=== PATIENT | male | born 1995 | race African-American/Black ===

== ENCOUNTER 2024-08-26 15:37 | Emergency (ER) | payer BC, SELFPAY ==
--- NOTE | ~2024-08-26 | XR_ITS ---
XR chest 2V DATE: 08/26/2024 16:10 INDICATION: Chest pain, shortness of breath TECHNIQUE: Chest pain, shortness of breath COMPARISON: None FINDINGS: Normal heart size. No hilar or mediastinal enlargement. No pulmonary infiltrate or consolid ation, pleural effusion or pulmonary vascular congestion or pneumothorax is detected. Included skeletal structures are unremarkable. IMPRESSION: No active cardiopulmonary disease Reviewed, dictated and finalized at location [facility]. [facility] [employer]
--- NOTE | 2024-08-26 15:40 | ED.CHESTPAIN ---
HPI - Chest Pain General Chief Complaint: Shortness of Breath/Dyspnea Stated Complaint: chest pain / SOB Time Seen by Provider: 08/26/24 15:40 Source: patient Mode of arrival: ambulatory Limitations: no limitations History of Present Illness HPI narrative: Asa is a 28-year-old male patient presenting to the clinic today with complaints of intermittent chest pain and shortness of breath x2 weeks. He works as a over the road dedicated truck driver. He is from [place]. States the last time he was have having bad chest pain was on Tuesday. He states he Googled his symptoms and thought he should come in today to be evaluated. States he felt short of breath with exertion and is having some chest tightness when trying to take a deep breath. Does have a nonproductive occasional cough. He denies any chest pain at this time but still states he has a little tightness in the anterior chest when he tries to take a deep breath. Rates pain 0/10 currently. Pain is nonradiating. He denies any history of hypertension, hyperlipidemia, diabetes, clotting disorder, or lung disease. He is hypertensive in the clinic today. Related Data Home Medications Medication Instructions Recorded Confirmed No Home Medications 08/26/24 08/26/24 Allergies Allergy/AdvReac Type Severity Reaction Status Date / Time No Known Allergies Allergy Verified 08/26/24 15:49 Review of Systems Review of Systems: Pertinent positives per HPI. Patient denies any fever, chills, rash, headache, visual changes, dizziness, palpitations, nausea, vomiting, diarrhea, constipation, abdominal pain, or any urinary issues. PMFSH Comments At the time of my signature, I reviewed and agree with the nursing past medical, surgical, social, and family history. There is no relevant family history pertinent to the patient complaint. Exam Narrative: General: Well-developed, well nourished, in no apparent distress Head: Normocephalic, atraumatic Eyes: Pupils equally round and reactive to light bilaterally, EOM intact, sclera and conjunctive clear, no discharge, lids normal Ears: TMs intact and clear, ear canals clear, no drainage, grossly hearing normal. Nose: Nares patent, no discharge, no inflammation, no sinus tenderness. Mouth: Oral pharynx without lesions or masses, good dentition, MMM. Neck: Supple, trachea midline, no enlargement of anterior or posterior cervical nodes, no thyroid masses or goiter palpable. Cardio: Regular rate and rhythm, s1 and s2 normal, no murmur appreciated. Resp: Clear to auscultation bilaterally, no rhonchi, rales, wheezing or rubs Extremities: No deformity, no edema, no cyanosis, capillary refill less than 2 seconds, peripheral pulses palpable and strong. Integumentary: [place], warm, and dry, intact without lesion, no rashes. Course Course Emergency Course: Portions of this record may have been created with voice recognition software. Level of Care: Express Care Visit Vital Signs Vital signs: Vital signs reviewed MDM - Chest Pain MDM Narrative Medical decision making narrative: At the time of visit patient is resting comfortably on the exam table. Patient appears to be nontoxic. EKG: EKG shows sinus rhythm with heart rate of 84 beats per minute with possible left atrial enlargement with a nonspecific T-wave abnormality. No ST elevation or depression noted. Diagnostics: Chest x-ray was performed and is negative for any acute cardiopulmonary process. Plans: I suspect patient has chest pain/tightness with shortness of breath. Recommend sending to the ER for further evaluation to rule out PE/non STEMI. Patient would like to go to [facility]. Spoke with Dr. Gifford and report was given for continuity of care and she accepts patient for transport. Differential Diagnosis Differential diagnosis: Likely fracture of rib, pneumothorax, stable angina, unstable angina pectoris, atypical chest pain, st elevation myocardial infarction, costochondritis, chest pain and other (PE, pneumonia, non STEMI) Imaging Data Radiologist's impression: ITS Impressions Chest X-Ray 08/26/24 16:11 IMPRESSION: No active cardiopulmonary disease ECG Data EKG #1: Attestation: I personally reviewed and interpreted this ECG as follows: ECG completion date: 08/26/24 ECG completion time: 16:04 Prior ECG tracings: not available for review Interpretation: EKG shows sinus rhythm with heart rate of 84 beats per minute with possible left atrial enlargement and nonspecific T-wave abnormality. W[place] interval is 150s 3 milliseconds, QRS durations 96 milliseconds, QT-QTC is 321-362 milliseconds, P-R-T axis is 62 59 -21 Discharge Plan Discharge Clinical Impression: Chest pain, Shortness of breath Patient Disposition: Acute Care Hospital Condition: Stable Prescriptions: No Action No Home Medications Follow-up/Referrals: UNKNOWN,DOCTOR [Non-Staff] - Time of Disposition: 16:26 Quality NIHSS Nursing Documentation ED NIHSS nursing documentation: reviewed/agree
[2024-08-26 15:54] VITALS: BP 153/92; PULSE 72; RESP 17; TEMP 36.3; O2SAT 100
--- NOTE | 2024-08-26 16:00 | ECG_ITS ---
Test Date: 2024-08-26 16:04:49 Measurements Intervals [place] Rate: 84 P: 62 PA: 153 QRS: 59 QRSD: 96 T: -21 QT: 321 QTc: 380 Interpretive Statements SINUS RHYTHM POSSIBLE LEFT ATRIAL ENLARGEMENT CANNOT R/O SEPTAL INFARCT, AGE INDETERMINATE ST-T WAVE ABNORMALITY IN INFERIOR LEADS- CONSIDER ISCHEMIA BASELINE ARTIFACT- I, III, AVL, V3-V4 ABNORMAL ECG Electronically Signed On 08-26-2024 16:42:08 GEOLOGICAL E LOGGER by Duane Morris D.O. No previous ECG available for comparison
== END 2024-08-26 16:29 | disposition short-term general hospital (02) ==
PROVIDERS: Emergency Provider Nurse Practitioner Family
DX: R06.02 Shortness of breath (principal); R07.9 Chest pain, unspecified
CPT/HCPCS: 71046; 93005; 99203; 99213; G0463